=== PATIENT | female | born 1995 | race Caucasian/White ===

== ENCOUNTER 2017-03-10 18:45 | Emergency (ER) | payer OTHER ==
[~2017-03-10] VITALS: Ht 157.5 cm; Wt 64.9 kg
[2017-03-10] MEDS: ALBUTEROL SULFATE 2.5 MG/3 ML NEBU NEB ONE (19:54)
[2017-03-10] MEDS ORDERED: ALBUTEROL SULFATE 2.5 MG/3 ML NEBU ONE (20:06)
--- NOTE | 2017-03-10 20:18 | NUR ---
PATIENT STATES AFTER BREATHING TX "I FEEL ALOT BETTER NOW."
--- NOTE | 2017-03-10 20:30 | NUR ---
Patient discharged to home in stable conditon WITH MOTHER TAKING PATIENT HOME. Written and verbal after care instructions given. Patient verbalizes understanding of instructions. WALKED OUT OF ER WITH NO DISTRESS
[2017-03-10 20:32] VITALS: BP 110/75
== END 2017-03-10 20:32 | disposition other institution (70) ==
LOC: ER 18:49
DX: J45.909 Unspecified asthma, uncomplicated (principal)
CPT/HCPCS: 71010; 94640; 99283; A4663

== ENCOUNTER 2018-01-14 21:16 | Emergency (ER) | payer BC, OTHER ==
[~2018-01-14] VITALS: Ht 160 cm; Wt 63.5 kg
[2018-01-14] MEDS ORDERED: CALC60CR5 (21:51)
--- NOTE | 2018-01-14 21:55 | NUR ---
OS 20/20 CORRECTED OD 20/30 CORRECTED
--- NOTE | 2018-01-14 22:07 | NUR ---
Patient discharged to home in stable conditon. Written and verbal after care instructions given. Patient verbalizes understanding of instructions. Walked out of ER with no distress noted
== END 2018-01-14 22:08 | disposition home or self-care (01) ==
LOC: ER 21:18
DX: H10.9 Unspecified conjunctivitis (principal)
CPT/HCPCS: A4663

== ENCOUNTER 2018-01-21 20:22 | Emergency (ER) | payer OTHER ==
[~2018-01-21] VITALS: Ht 160 cm; Wt 64.9 kg
[~2018-01-21 20:22] MED LIST: CALC60CR5
--- NOTE | 2018-01-21 20:40 | NUR ---
MD [facility] AT BEDSIDE FOR MSE
--- NOTE | 2018-01-21 20:45 | NUR ---
Patient discharged to home in stable conditon. Written and verbal after care instructions given. Patient verbalizes understanding of instructions. Patient able to ambulate unassisted with a steady gait. Patient left with all personal belongings.
[2018-01-21 20:51] VITALS: BP 118/82
== END 2018-01-21 20:45 | disposition home or self-care (01) ==
LOC: ER 20:25
DX: L25.9 Unspecified contact dermatitis, unspecified cause (principal)
CPT/HCPCS: 99282; A4663